=== PATIENT | male | born 1990 | race Caucasian/White ===

== ENCOUNTER 2016-07-19 02:55 | Emergency (ER) | payer SELFPAY ==
[~2016-07-19] VITALS: Ht 162.6 cm; Wt 68.0 kg
[2016-07-19 03:00] VITALS: Ht 162.6 cm; Wt 68.0 kg
--- NOTE | 2016-07-19 03:56 | ERD ---
ER Documentation Chief Complaint Date/Time DATE: 07/19/16 TIME: 03:43 Chief Complaint pain on right foot/heel, states right heel got stuck on a motorized cart HPI 26-year-old male presents with chief complaint of right foot pain post injury at work earlier tonight. Patient states that the bumper of a motorized cart pinned his heel against the ground. Since then he has had pain in the heel of his foot that is aggravated by walking. Currently rates his pain a 4 out of 10 in severity. He denies swelling, loss in range of motion, numbness, and open wounds. Has not taken any medication for relief of symptoms. ROS All systems reviewed and are negative except as per history of present illness. Allergies Allergies: Coded Allergies: No Known Drug Allergies (Verified Allergy, Unknown, 07/19/16) PMhx/Soc Medical and Surgical Hx: pt denies Medical Hx, pt denies Surgical Hx History of Surgery: No Anesthesia Reaction: No Hx Neurological Disorder: No Hx Respiratory Disorders: No Hx Cardiac Disorders: No Hx Psychiatric Problems: No Hx Miscellaneous Medical Probl: No Hx Alcohol Use: Yes Hx Substance Use: No Hx Tobacco Use: No Smoking Status: Never smoker Physical Exam Vitals Vital Signs Date Time Temp Pulse Resp B/P Pulse Ox O2 Delivery O2 Flow Rate FiO2 07/19/16 03:00 98.5 63 20 111/77 99 Physical Exam GENERAL: Non-toxic. No apparent signs of distress. LUNGS: Clear to auscultation. No accessory muscle use. No wheezing, no crackles. No signs or symptoms of respiratory distress. HEART: Regular rate and rhythm. No murmurs, clicks, rubs or gallops. EXTREMITIES: No peripheral cyanosis or edema. No focal pain or notable trauma. Full range of motion in all extremities. Full range of motion foot and ankle. Tenderness to palpation of the medial malleolus of the right foot. Tender to palpation of right calcaneus. 2+ DP pulse. good capillary refill. NEURO: The patient moves all 4 extremities with 5/5 strength. Cranial nerves are grossly intact. Normal mental status for age. Good muscle tone. SKIN: There is no apparent rash, petechiae, erythema or swelling. Good skin turgor. Procedures/MDM Patient presents with pain in the right heel post injury at work. On examination he is tender to palpation of the calcaneus and medial malleolus of the right foot. However he has full range of motion, no edema or ecchymosis. No obvious signs of trauma. 2+ DP pulse. Good cap refill. Stated that his work wanted to come in and be examined as this injury occurred at his workplace. I explained that we would be ordering x-rays of both foot and ankle to rule out fracture. I offered ibuprofen for pain relief, as patient states that his pain is 4 out of 10 in severity currently and has not taken any medications prior to arrival. Patient refused pain medication at this time and stated that he would only like imaging. Awaiting results of imaging prior to further management. X-ray of right foot (interpretation by radiologist): IMPRESSION: Unremarkable right foot radiographs. X-ray of right ankle (interpretation by radiologist): IMPRESSION: Unremarkable right ankle. I explained the results with patient, explained that there is no dislocation or fracture seen on x-rays. Pain is likely due to sprain versus strain. RICE instructions were discussed, an William wrap was applied in the ER, and a prescription for ibuprofen 600 mg was provided. At this time a low suspicion for dislocation, fracture, neurovascular compromise, compartment syndrome, and Achilles tendon rupture. Patient stable for discharge and outpatient management. Advised to follow-up with PCP in 1-2 days. Strict return precautions discussed. Departure Diagnosis: Primary Impression: Injury of foot Encounter type: initial encounter Laterality: right Qualified Code: S99.921A - Injury of foot, right, initial encounter Additional Impression: Foot sprain Encounter type: initial encounter Laterality: right Qualified Code: S93.601A - Foot sprain, right, initial encounter Condition: Ally oTrres PA-C Jul 19, 2016 03:53
--- NOTE | 2016-07-19 04:26 | RADRPT ---
PROCEDURE: XR Foot. CLINICAL INDICATION: Trauma TECHNIQUE: AP, lateral and oblique views of the right foot was obtained. The images were reviewed on a PACS workstation. COMPARISON: None. FINDINGS: The bones of the foot appear intact, with no evidence of fracture, dislocation, or subluxation. The joint spaces are preserved. Bone mineralization is normal. No significant soft tissue swelling is se en. IMPRESSION: Unremarkable right foot radiographs. RPTAT: HJES .Desmond Herron MD, MD Date Time Electronically viewed and signed by .Desmond Herron MD, MD on 07/19/2016 04:26 .S/
--- NOTE | 2016-07-19 04:30 | RADRPT ---
PROCEDURE: XR Right Ankle. CLINICAL INDICATION: Trauma TECHNIQUE: AP, oblique and lateral views of the right ankle were performed. COMPARISON: None. FINDINGS: There is normal mineralization and alignment. No acute fracture or osseous lesion is identified. The joints are normal. The soft tissues are unremarkable. IMPRESSION: Unremarkable right ankle. RPTAT: HJES .Desmond Herron MD, MD Date Time Electronically viewed and signed by .Desmond Herron MD, on 07/19/2016 04:29 .S/
[2016-07-19] MEDS ORDERED: IBUP-1542 PO (04:40)
[2016-07-19 04:50] VITALS: BP 130/77; PULSE 61; RESP 16; TEMP 98.7
== END 2016-07-19 04:55 | disposition home or self-care (01) ==
LOC: FTE 02:55
DX: S93.601A Unspecified sprain of right foot, initial encounter (principal); W22.8XXA Striking against or struck by other objects, initial encounter; Y92.9 Unspecified place or not applicable
CPT/HCPCS: 73630